=== PATIENT | male | born 2005 | race Caucasian/White ===

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

== ENCOUNTER 2025-01-30 22:51 | Emergency (ER) | payer OTHER ==
[2025-01-30 23:03] VITALS: BP 140/76; PULSE 101; RESP 18; TEMP 98.2; BMI 25.0
== END 2025-01-30 23:28 | disposition home or self-care (01) ==
LOC: FER 22:51
DX: F41.9 Anxiety disorder, unspecified (principal); R20.0 Anesthesia of skin; R20.2 Paresthesia of skin
CPT/HCPCS: 99283-25

== ENCOUNTER 2025-03-09 18:41 | Emergency (ER) | payer OTHER ==
[2025-03-09 18:47] VITALS: BP 144/90; PULSE 88; RESP 18; TEMP 98; BMI 23.7
== END 2025-03-09 20:29 | disposition home or self-care (01) ==
LOC: FER 18:41
DX: F41.9 Anxiety disorder, unspecified (principal)
CPT/HCPCS: 99282-25